=== PATIENT | female | born 1955 | race Caucasian/White ===

== ENCOUNTER 2016-11-04 10:09 | Observation (INO) | payer BC ==
[~2016-11-04 10:09] MED LIST: ASPIR-LOW81 MG; ASPIRIN EC81 MG PO; CALTRATE-600/VI1 TA1; CVS GLUCOSAMIN; FLAGYL500 M1 PO; LEVAQUIN500 M1 PO; PRILOSEC20 MG; PROTONIX40 M2 PO; ULTRAM50 M1 PO; VIACTIV SOFT C1 EAC1 PO; VITAMIN C500 M3 PO; ZOFRAN4 M2 PO; [UNRECOGNIZED DRUG - OTHER]
[2016-11-04 10:41] LABS: BASO % 0.3 % (0-2); EOS % 0.8 % (0-7); EOSINOPHIL ABSOLUTE COUNT 0.1 tho/cmm (0.0-0.7); HCT-HEMATOCRIT 43.6 % (34.0-49.0); IMMATURE GRANULOCYTES ABSOLUTE 0.03 tho/cmm (0-0.03); IMMATURE GRANULOCYTES PERCENT 0.3 % (0-0.3); LYMPH % 26.1 % (20-45); LYMPH ABSOLUTE COUNT 2.4 tho/cmm (0.8-4.5); MCH (MEAN CORPUSCULAR HGB) 27.2 pg (28.0-32.0); MCHC MEAN CORPUSCULAR HGB CONC 32.1 % (32.0-36.0); MCV (MEAN CELL VOLUME) 84.8 fl (82.0-96.0); MONO % 6.5 % (0-12); MONOCYTE ABSOLUTE COUNT 0.6 tho/cmm (0.0-1.2); NEUTROPHIL ABSOLUTE COUNT 6.1 tho/cmm (1.6-8.0); NEUTROPHIL-AUTOMATED 6.1 tho/cmm (1.6-8.0); PLATELET COUNT 263 tho/cmm (150-450); RED BLOOD COUNT 5.14 mil/cmm (4.00-5.20); RED CELL DISTRIBUTION WIDTH 14.4 % (12.4-16.4); WHITE BLOOD COUNT 9.2 tho/cmm (4.0-10.0)
[2016-11-04 10:51] LABS: ALB/GLOB RATIO 0.8 (0.8-2.0); ALBUMIN 3.8 g/dl (3.5-5.0); ALKALINE PHOSPHATASE 104 U/L (33-138); ALT/SGPT 24 U/L (12-78); ANION GAP 14 mmol/L (0-20); AST/SGOT 21 U/L (10-40); BILIRUBIN,DIRECT 0.1 mg/dl (0.0-0.3); BILIRUBIN,INDIRECT 0.2 mg/dL (0.0-1.0); BILIRUBIN,TOTAL 0.3 mg/dl (0-1.5); BLOOD UREA NITROGEN 18 mg/dl (6-24); CALCIUM 9.4 mg/dl (8.5-10.5); CARBON DIOXIDE-VENOUS 26 mmol/L (22-32); CHLORIDE 103 mmol/l (96-110); CREATININE 0.84 mg/dl (0.50-1.10); GLUCOSE 125 mg/dL (70-110); LIPASE 174 U/L (73-393); SODIUM 139 mmol/L (135-145); eGFR VALUE FOR BLACK 87 mL/Min
[2016-11-04 10:52] LABS: C-REACTIVE PROTEIN <0.3 mg/dl (0-0.9)
[2016-11-04] MEDS ORDERED: FISH OIL 11000 MG/CA PO (11:00)
[2016-11-04] MEDS ORDERED: VITAMIN B-121000 MC1 PO (11:00)
[2016-11-04] MEDS ORDERED: VITAMIN D31000 UNI3 PO (11:00)
[2016-11-04] MEDS ORDERED: VITAMIN E400 UNI4 PO (11:01)
[2016-11-04] MEDS ORDERED: ESTROVEN 155 M155 MG PO (11:01)
[2016-11-04 12:18] LABS: URINE BILIRUBIN NEGATIVE (NEG); URINE BLOOD SMALL (NEG); URINE GLUCOSE (UA) NEGATIVE (NEG); URINE KETONE NEGATIVE (NEG); URINE LEUKOCYTE ESTERASE POSITIVE (NEG); URINE NITRITE NEGATIVE (NEG); URINE PROTEIN NEGATIVE (NEG); URINE SPECIFIC GRAVITY 1.015 (1.003-1.030)
[2016-11-04 12:21] LABS: URINE APPEARANCE CLEAR; URINE COLOR PALE YELLOW
[2016-11-04 12:31] LABS: URINE WBC RARE /[HPF] (0-5)
[2016-11-04 12:32] LABS: URINE BACTERIA 2+
[2016-11-05 05:49] LABS: BASO % 0.2 % (0-2); EOS % 0.4 % (0-7); HCT-HEMATOCRIT 39.9 % (34.0-49.0); HGB-HEMOGLOBIN 12.7 gm/dl (12.0-15.5); IMMATURE GRANULOCYTES ABSOLUTE 0.01 tho/cmm (0-0.03); IMMATURE GRANULOCYTES PERCENT 0.1 % (0-0.3); LYMPH ABSOLUTE COUNT 1.7 tho/cmm (0.8-4.5); MCH (MEAN CORPUSCULAR HGB) 27.2 pg (28.0-32.0); MCHC MEAN CORPUSCULAR HGB CONC 31.8 % (32.0-36.0); MCV (MEAN CELL VOLUME) 85.4 fl (82.0-96.0); MEAN PLATELET VOLUME 10.6 cmc (9.4-12.4); MONO % 7.3 % (0-12); MONOCYTE ABSOLUTE COUNT 0.6 tho/cmm (0.0-1.2); PLATELET COUNT 219 tho/cmm (150-450); RED BLOOD COUNT 4.67 mil/cmm (4.00-5.20); RED CELL DISTRIBUTION WIDTH 14.5 % (12.4-16.4); WHITE BLOOD COUNT 8.3 tho/cmm (4.0-10.0)
[2016-11-05 06:03] LABS: PROTHROMBIN TIME 11.2 SECONDS (9.0-13.6)
[2016-11-05] MEDS ORDERED: PREDNISONE10 M1 PO (13:11)
[2016-11-05] MEDS ORDERED: ULTRAM50 M1 PO (13:12)
[2016-11-05] MEDS ORDERED: ZOFRAN ODT4 MG PO (13:13)
[2016-11-05] MEDS ORDERED: NAPROSYN500 M1 PO (13:15)
[2016-11-05] MEDS ORDERED: TYLENOL325 M2 PO (13:16)
== END 2016-11-05 14:20 ==
LOC: EDMED 10:09 → EMR2 14:44 → CAR1 16:00
PROVIDERS: Emergency Medicine; Radiology Diagnostic Radiology; ADMIT Internal Medicine
PROC: 0BBN3ZX Excision of Right Pleura, Percutaneous Approach, Diagnostic (ICD-10-PCS; principal; 2016-11-05)
DX: R07.89 Other chest pain (principal); J94.8 Other specified pleural conditions; M54.9 Dorsalgia, unspecified; K21.9 Gastro-esophageal reflux disease without esophagitis; R82.71 Bacteriuria; M19.90 Unspecified osteoarthritis, unspecified site; Z79.82 Long term (current) use of aspirin; Z79.899 Other long term (current) drug therapy; Z88.0 Allergy status to penicillin; Z82.49 Family history of ischemic heart disease and other diseases of the circulatory system; Z90.49 Acquired absence of other specified parts of digestive tract; Z98.890 Other specified postprocedural states
CPT/HCPCS: G0378; J1170; J1885; J2250; J2270; J2405; J2930; J3010; J7030; Q9967